=== PATIENT | female | born 1950 | race Caucasian/White ===

== ENCOUNTER 2021-03-14 23:52 | Emergency (ER) | payer OTHER ==
[~2021-03-14 23:52] MED LIST: CLONAZEPAM 1MG T1 MG PO; CLOPIDOGREL75 MG PO; DESVENLAFAXINE100 M3 PO; GABAPENTIN300 MG PO; IBANDRONATE SO150 MG PO; NEXIUM40 MG PO; PRILOSEC20 MG PO; PROPRANOLOL HCL40 MG PO; QUETIAPINE FUM200 MG PO
[2021-03-15 01:49] LABS: BASOPHIL 0.3 % (0-2); EOSINOPHIL 0.9 % (0-7); HCT 33.1 % (37.0-47.0); HGB 10.7 g/dl (12.5-16.0); LYMPHOCYTE 20.4 % (15-48); MCH 32.3 pg (25.0-31.0); MCHC 32.3 g/dL (32.0-36.0); MONOCYTE 12.5 % (0-12); MPV 8.8 fL (6.0-9.5); NEUTROPHIL 63.3 % (41-80); NRBC 0; PLT 297 K/uL (150-400); RBC 3.31 M/uL (4.20-5.40); RDW 12.9 % (11.5-14.0); WBC 11.4 K/uL (4.0-10.5)
[2021-03-15 02:03] LABS: CREATININE 0.8 mg/dL (0.51-0.95)
[2021-03-15 02:04] LABS: ALBUMIN 2.6 g/dL (3.4-5.0); BILIRUBIN - TOTAL 0.3 mg/dL (0.2-1.0); GLOBULIN (CALCULATION) 4.1 g/dL; POTASSIUM 4.5 mmol/L (3.5-5.1); TOTAL PROTEIN 6.7 g/dL (6.4-8.2)
[2021-03-15 02:23] LABS: INFLUENZA A NAA NEGATIVE (NEGATIVE)
[2021-03-15 02:27] LABS: CORONAVIRUS 2019 SARS-COV-2 POSITIVE (NEGATIVE)
[2021-03-15] MEDS ORDERED: ZPAK PO (04:24)
[2021-03-15] MEDS ORDERED: HYDROCODONE-CH473 ML PO (04:24)
== END 2021-03-15 05:02 | disposition home or self-care (01) ==
LOC: FER 23:52
PROVIDERS: Emergency Medicine Emergency Medical Services
DX: U07.1 COVID-19 (principal); J12.82 Pneumonia due to coronavirus disease 2019; F17.210 Nicotine dependence, cigarettes, uncomplicated; Z20.822 Contact with and (suspected) exposure to COVID-19; Z23 Encounter for immunization
CPT/HCPCS: 36415; 36600; 71045; 71275; 80053; 82803; 85025; 85379; 86140; J0696; M0243; Q0244; Q9967; U0002

== ENCOUNTER 2021-04-18 05:18 | Emergency (ER) | payer OTHER ==
[~2021-04-18 05:18] MED LIST changes: +HYDROCODONE-CH473 ML PO; +ZPAK PO
[2021-04-18 05:46] LABS: BASOPHIL 0.7 % (0-2); EOSINOPHIL 1.6 % (0-7); HCT 37.6 % (37.0-47.0); HGB 12.4 g/dl (12.5-16.0); LYMPHOCYTE 31.1 % (15-48); MCH 32.7 pg (25.0-31.0); MCV 99.2 fL (78.0-100.0); MONOCYTE 13.1 % (0-12); MPV 9.1 fL (6.0-9.5); NEUTROPHIL 52.8 % (41-80); NRBC 0; PLT 299 K/uL (150-400); RBC 3.79 M/uL (4.20-5.40); RDW 14.1 % (11.5-14.0); WBC 8.2 K/uL (4.0-10.5)
[2021-04-18 06:04] LABS: ALBUMIN 3.3 g/dL (3.4-5.0); BILIRUBIN - TOTAL 0.3 mg/dL (0.2-1.0); BUN/CREAT RATIO (CALC) 25.6 RATIO; CREATININE 0.82 mg/dL (0.51-0.95); GLOBULIN (CALCULATION) 3.8 g/dL; POTASSIUM 4.3 mmol/L (3.5-5.1); TOTAL PROTEIN 7.1 g/dL (6.4-8.2)
[2021-04-18] MEDS ORDERED: SENNA-DOCUSATE1 EACH PO (09:08)
[2021-04-18] MEDS ORDERED: CLEARLAX17 GM PO (09:09)
[2021-04-18] MEDS ORDERED: CYCLOBENZAPRINE10 MG PO (09:17)
== END 2021-04-18 09:32 | disposition home or self-care (01) ==
LOC: FER 05:18
PROVIDERS: Emergency Medicine
DX: K63.89 Other specified diseases of intestine (principal); R07.89 Other chest pain; M54.50 Low back pain, unspecified; F17.200 Nicotine dependence, unspecified, uncomplicated; Z88.8 Allergy status to other drugs, medicaments and biological substances
CPT/HCPCS: 36415; 71045; 71275; 80053; 83690; 84484; 85025; 93005; Q9967

== ENCOUNTER 2021-04-18 19:07 | Emergency (ER) | payer OTHER ==
[~2021-04-18 19:07] MED LIST changes: +CLEARLAX17 GM PO; +CYCLOBENZAPRINE10 MG PO; +SENNA-DOCUSATE1 EACH PO
== END 2021-04-18 22:22 | disposition home or self-care (01) ==
LOC: FER 19:07
DX: K21.9 Gastro-esophageal reflux disease without esophagitis (principal); K59.00 Constipation, unspecified; Z88.8 Allergy status to other drugs, medicaments and biological substances
CPT/HCPCS: 99283

== ENCOUNTER 2021-04-19 23:49 | Emergency (ER) | payer OTHER ==
[2021-04-20 00:46] LABS: BASOPHIL 0.6 % (0-2); EOSINOPHIL 0.8 % (0-7); HCT 38.9 % (37.0-47.0); HGB 12.7 g/dl (12.5-16.0); LYMPHOCYTE 17.7 % (15-48); MCH 32.3 pg (25.0-31.0); MCHC 32.6 g/dL (32.0-36.0); MONOCYTE 8.1 % (0-12); MPV 9.2 fL (6.0-9.5); NEUTROPHIL 72.2 % (41-80); NRBC 0; PLT 294 K/uL (150-400); RBC 3.93 M/uL (4.20-5.40); RDW 13.9 % (11.5-14.0)
[2021-04-20 01:34] LABS: ALBUMIN 3.5 g/dL (3.4-5.0); BILIRUBIN - TOTAL 0.4 mg/dL (0.2-1.0); BUN/CREAT RATIO (CALC) 22.1 RATIO; CREATININE 0.68 mg/dL (0.51-0.95); GLOBULIN (CALCULATION) 3.2 g/dL; POTASSIUM 3.8 mmol/L (3.5-5.1); TOTAL PROTEIN 6.7 g/dL (6.4-8.2)
[2021-04-20 01:35] LABS: LACTIC ACID 1.2 mmol/L (0.4-1.9)
[2021-04-20 03:12] LABS: BILIRUBIN NEGATIVE (NEGATIVE); BLOOD NEGATIVE Ery/uL (NEGATIVE); CLARITY CLEAR (CLEAR); COLOR YELLOW (YELLOW); GLUCOSE (U) NORMAL (NORMAL); LEUKOCYTES NEGATIVE Leu/uL (NEGATIVE); NITRITE NEGATIVE (NEGATIVE); PROTEIN NEGATIVE (NEGATIVE); UROBILINOGEN 0.2 mg/dL (0.2-1.0); pH 8.5 (5.0-9.0)
[2021-04-20] MEDS ORDERED: PERCOCET 5-3251 EACH PO (04:20)
[2021-04-20] MEDS ORDERED: CARAFATE1 GM PO (04:20)
[2021-04-20] MEDS ORDERED: PROTONIX 40MG T40 MG PO (04:20)
== END 2021-04-20 05:02 | disposition home or self-care (01) ==
LOC: FER 23:49
PROVIDERS: Emergency Medicine Emergency Medical Services
DX: R10.13 Epigastric pain (principal); R10.816 Epigastric abdominal tenderness; K21.9 Gastro-esophageal reflux disease without esophagitis; J44.9 Chronic obstructive pulmonary disease, unspecified; F17.210 Nicotine dependence, cigarettes, uncomplicated; Z88.8 Allergy status to other drugs, medicaments and biological substances; Z79.02 Long term (current) use of antithrombotics/antiplatelets
CPT/HCPCS: 36415; 80053; 81003; 82150; 83605; 83690; 84145; 84443; 84484; 85025; 93005; J1885; J2270; J2405; J2550; J7030; Q9967

== ENCOUNTER 2022-02-19 02:02 | Emergency (ER) | payer OTHER ==
[~2022-02-19 02:02] MED LIST changes: +CARAFATE1 GM PO; +PERCOCET 5-3251 EACH PO; +PROTONIX 40MG T40 MG PO
[2022-02-19 03:55] LABS: BASOPHIL 0.7 % (0-2); HCT 34.5 % (37.0-47.0); HGB 11.5 g/dl (12.5-16.0); LYMPHOCYTE 25.6 % (15-48); MCH 31.9 pg (25.0-31.0); MCHC 33.3 g/dL (32.0-36.0); MCV 95.6 fL (78.0-100.0); MONOCYTE 11.1 % (0-12); MPV 9.5 fL (6.0-9.5); NEUTROPHIL 61.3 % (41-80); NRBC 0; PLT 284 K/uL (150-400); RBC 3.61 M/uL (4.20-5.40); WBC 8.6 K/uL (4.0-10.5)
[2022-02-19 04:04] LABS: CORONAVIRUS 2019 SARS-COV-2 NEGATIVE (NEGATIVE); INFLUENZA A NAA NEGATIVE (NEGATIVE)
[2022-02-19 04:13] LABS: ALBUMIN 3.1 g/dL (3.4-5.0); BILIRUBIN - TOTAL 0.4 mg/dL (0.2-1.0); BUN/CREAT RATIO (CALC) 12.6 RATIO; CREATININE 1.03 mg/dL (0.51-0.95); GLOBULIN (CALCULATION) 3.3 g/dL; POTASSIUM 3.8 mmol/L (3.5-5.1); TOTAL PROTEIN 6.4 g/dL (6.4-8.2)
[2022-02-19 04:18] LABS: INR 0.93 (0.9-1.2); PROTHROMBIN TIME 12.2 SECONDS (11.9-13.9); PTT 26.9 SECONDS (24.9-34.6)
[2022-02-19 04:34] LABS: BILIRUBIN NEGATIVE (NEGATIVE); BLOOD NEGATIVE Ery/uL (NEGATIVE); CLARITY CLEAR (CLEAR); COLOR YELLOW (YELLOW); GLUCOSE (U) NORMAL (NORMAL); LEUKOCYTES NEGATIVE Leu/uL (NEGATIVE); NITRITE NEGATIVE (NEGATIVE); PROTEIN NEGATIVE (NEGATIVE); UROBILINOGEN 0.2 mg/dL (0.2-1.0)
[2022-02-20] MEDS ORDERED: NORCO 5-325 TA1 EACH PO (19:52)
== END 2022-02-19 05:02 | disposition home or self-care (01) ==
LOC: FER 02:02
PROVIDERS: Internal Medicine
DX: R53.81 Other malaise (principal); R19.7 Diarrhea, unspecified; Z20.822 Contact with and (suspected) exposure to COVID-19; Z88.8 Allergy status to other drugs, medicaments and biological substances
CPT/HCPCS: 36415; 80053; 81003; 83690; 83880; 84484; 85025; 85610; 85730; 93005; U0002

== ENCOUNTER 2022-02-20 17:55 | Emergency (ER) | payer OTHER ==
[2022-02-20] MEDS ORDERED: NORCO 5-325 TA1 EACH PO (19:52)
== END 2022-02-20 20:52 | disposition home or self-care (01) ==
LOC: FER 17:55
DX: S22.42XA Multiple fractures of ribs, left side, initial encounter for closed fracture (principal); F17.210 Nicotine dependence, cigarettes, uncomplicated; Z88.8 Allergy status to other drugs, medicaments and biological substances; W19.XXXA Unspecified fall, initial encounter; Y92.009 Unspecified place in unspecified non-institutional (private) residence as the place of occurrence of the external cause
CPT/HCPCS: 71250; 94010